=== PATIENT | male | born 1995 | race Caucasian/White ===

== ENCOUNTER → 2023-04-19 | Outpatient (CLI) | payer OTHER ==
--- NOTE | 2023-04-20 00:54 | MR ---
EXAMINATION TYPE: MR shoulder RT wo con, MR shoulder LT wo con DATE OF EXAM: 04/19/2023 COMPARISON: None. HISTORY: Pain Right shoulder (accession [id number]), Pain Left shoulder (accession [id number]) for severa l years. TECHNIQUE: Multiplanar, multisequence imaging of the bilateral shoulders are performed without contra st. RIGHT SHOULDER: FINDINGS: Rotator Cuff: Intact supraspinatus and infraspinatus tendons. Intact subscapularis tendon. Rotator cu ff muscle bulk is preserved. Acromioclavicular Joint: Within normal limits Glenohumeral Joint: No significant effusion. No significant spurring. Labrum: The labrum appears grossly intact given limitation of non-arthrogram study. Biceps Tendon: The long head of biceps is in normal location within bicipital groove. Bone marrow signal: No focal abnormal marrow signal is appreciated. Other: No additional significant abnormality is appreciated. IMPRESSION: No rotator cuff or labral tear is seen. LEFT SHOULDER: FINDINGS: Rotator Cuff: Intact supraspinatus and infraspinatus tendons. Intact subscapularis tendon. Rotator cu ff muscle bulk is preserved. Acromioclavicular Joint: Within normal limits. Glenohumeral Joint: No significant spurring. No significant effusion. Labrum: The labrum appears grossly intact given limitation of non-arthrogram study. Biceps Tendon: The long head of biceps is in normal location within bicipital groove. Bone marrow signal: No focal abnormal marrow signal is appreciated. Other: No additional significant abnormality is appreciated.
== END | disposition home or self-care (01) ==
LOC: RADMRIMAIN 16:25
DX: M25.512 Pain in left shoulder (principal)